=== PATIENT | female | born 2000 | race Caucasian/White ===

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

== ENCOUNTER 2018-01-02 14:16 | Emergency (ER) | payer SELFPAY ==
[~2018-01-02] VITALS: Ht 160 cm; Wt 52.3 kg
[2018-01-02 14:23] VITALS: BP 131/84
== END 2018-01-02 14:59 | disposition home or self-care (01) ==
LOC: ED 14:49
DX: S80.811A Abrasion, right lower leg, initial encounter (principal); X58.XXXA Exposure to other specified factors, initial encounter; Y93.89 Activity, other specified; Y92.009 Unspecified place in unspecified non-institutional (private) residence as the place of occurrence of the external cause; Y99.8 Other external cause status
CPT/HCPCS: 99282

== ENCOUNTER 2018-04-18 20:08 | Emergency (ER) | payer MEDICAID ==
[2018-04-18 20:12] VITALS: BP 105/66
[2018-04-18 20:57] LABS: MICROSCOPIC AUTO
[2018-04-18 20:58] LABS: CULTURE INDICATED? YES
[2018-04-18] MEDS ORDERED: ACETAMINOPHEN 325 MG TABLET PO ONE (21:30)
== END 2018-04-18 22:15 | disposition home or self-care (01) ==
LOC: ED 22:10
DX: O26.892 Other specified pregnancy related conditions, second trimester (principal); K59.00 Constipation, unspecified; Z3A.14 14 weeks gestation of pregnancy
CPT/HCPCS: 81001; 87086; 99284

== ENCOUNTER 2018-04-23 22:04 | Emergency (ER) | payer MEDICAID ==
[~2018-04-23] VITALS: Ht 160 cm; Wt 61.8 kg
[2018-04-23] MEDS ORDERED: ONDANSETRON ODT 4 MG ONE (22:28)
[2018-04-23] MEDS ORDERED: ACETAMINOPHEN 500 MG TABLET ONE (22:29)
[2018-04-23] MEDS ORDERED: ACETAMINOPHEN 500 MG TABLET PO ONE (22:30)
[2018-04-23] MEDS ORDERED: ONDANSETRON ODT 4 MG PO ONE (22:30)
[2018-04-23 22:46] LABS: MICROSCOPIC AUTO
[2018-04-23 22:55] LABS: CULTURE INDICATED? YES
[2018-04-23] MEDS ORDERED: OXYcodone IR 5MG TABLET ONE (23:02)
[2018-04-23] MEDS ORDERED: OXYcodone 5 MG/5 ML ORAL.SOL UDC ONE (23:04)
[2018-04-23 23:10] LABS: BASOPHILS % (AUTO) 1 % (0-1); EOSINOPHILS # (AUTO) 0.54 x10^3/uL (0-0.8); EOSINOPHILS % (AUTO) 5 % (1-7); LYMPHOCYTES % (AUTO) 27 % (22-44); MD NO; MEAN CORPUSCULAR HEMOGLOBIN 30.5 pg (27.0-34.8); MEAN CORPUSCULAR HGB CONC 34.5 g/dL (32.4-35.8); MEAN CORPUSCULAR VOLUME 88.2 fL (80-100); MEAN PLATELET VOLUME 8.8 fL (7.4-10.4); MONOCYTES # (AUTO) 0.64 x10^3/uL (0-1.4); MONOCYTES % (AUTO) 6 % (2-9); NEUTROPHILS % (AUTO) 61 % (42-75); PLATELET COUNT 204 x10^3/uL (130-400); RED CELL DISTRIBUTION WIDTH 13.9 % (9.6-15.2)
[2018-04-23 23:11] VITALS: BP 108/47
[2018-04-23 23:17] LABS: ALANINE AMINOTRANSFERASE 20 U/L (12-78); ALBUMIN 3.1 g/dL (3.4-5.0); ANION GAP 8 mmol/L (5-15); CALCIUM 8.5 mg/dL (8.5-10.1); CHLORIDE 107 mmol/L (98-107); CREATININE 0.43 mg/dL (0.55-1.02)
[2018-04-23 23:19] LABS: ALKALINE PHOSPHATASE 42 U/L (45-117); BILIRUBIN,TOTAL 0.1 mg/dL (0.2-1.0); TOTAL PROTEIN 6.9 g/dL (6.4-8.2)
[2018-04-23] MEDS ORDERED: OXYcodone 5 MG/5 ML ORAL.SOL UDC PO PRN (23:30)
== END 2018-04-24 00:11 | disposition home or self-care (01) ==
LOC: ED 22:17
DX: O21.9 Vomiting of pregnancy, unspecified (principal); M54.5 Low back pain; R10.11 Right upper quadrant pain; Z3A.15 15 weeks gestation of pregnancy
CPT/HCPCS: 36415; 76815; 80053; 81001; 85025; 87086; 99284; Q0162

== ENCOUNTER 2018-05-13 21:19 | Emergency (ER) | payer MEDICAID ==
[~2018-05-13] VITALS: Ht 160 cm; Wt 62.9 kg
[2018-05-13] MEDS ORDERED: ACETAMINOPHEN 500 MG TABLET PO ONE (21:55)
[2018-05-13] MEDS ORDERED: ACETAMINOPHEN 500 MG TABLET ONE (21:59)
[2018-05-13 22:26] LABS: BASOPHILS # (AUTO) 0.03 x10^3/uL (0-0.3); BASOPHILS % (AUTO) 0 % (0-1); EOSINOPHILS # (AUTO) 0.43 x10^3/uL (0-0.8); EOSINOPHILS % (AUTO) 5 % (1-7); LYMPHOCYTES # (AUTO) 2.43 x10^3/uL (1-6.1); LYMPHOCYTES % (AUTO) 31 % (22-44); MD NO; MEAN CORPUSCULAR HEMOGLOBIN 30.7 pg (27.0-34.8); MEAN CORPUSCULAR HGB CONC 34.7 g/dL (32.4-35.8); MEAN CORPUSCULAR VOLUME 88.6 fL (80-100); MEAN PLATELET VOLUME 8.5 fL (7.4-10.4); MONOCYTES # (AUTO) 0.55 x10^3/uL (0-1.4); MONOCYTES % (AUTO) 7 % (2-9); NEUTROPHILS # (AUTO) 4.43 x10^3/uL (1.8-8.0); NEUTROPHILS % (AUTO) 56 % (42-75); PLATELET COUNT 218 x10^3/uL (130-400); RED BLOOD COUNT 4.24 x10^6/uL (3.82-5.3); RED CELL DISTRIBUTION WIDTH 14.2 % (9.6-15.2)
[2018-05-13 22:42] LABS: MICROSCOPIC NOT IND
[2018-05-13 22:56] LABS: CULTURE INDICATED? NO
[2018-05-14] MEDS ORDERED: OXYcodone 5 MG/5 ML ORAL.SOL UDC PO PRN
[2018-05-14] MEDS ORDERED: OXYcodone 5 MG/5 ML ORAL.SOL UDC ONE (00:10)
[2018-05-14 00:16] VITALS: BP 113/67
[2018-05-14 00:21] VITALS: BP 103/48
[2018-05-14 00:45] VITALS: BP 91/41
== END 2018-05-14 00:58 | disposition home or self-care (01) ==
LOC: ED 23:16
DX: O20.0 Threatened abortion (principal); Z3A.18 18 weeks gestation of pregnancy; R10.2 Pelvic and perineal pain
CPT/HCPCS: 36415; 76815; 81003; 85025; 86850; 86900; 96372; 99284; J2790